=== PATIENT | female | born 1985 | race Caucasian/White ===

== ENCOUNTER → 2017-07-13 | Outpatient (CLI) | payer BC ==
[~2017-07-13] MED LIST: PRENATAL1 TA1 PO
== END ==
LOC: COL.RAD 10:10
DX: O44.11 Complete placenta previa with hemorrhage, first trimester (principal); Z3A.12 12 weeks gestation of pregnancy

== ENCOUNTER → 2017-11-30 | Outpatient (CLI) | payer BC | LOC: SUN.DIA 08:09 | DX: O24.419 Gestational diabetes mellitus in pregnancy, unspecified control (principal); Z3A.32 32 weeks gestation of pregnancy | CPT/HCPCS: G0108 ==

== ENCOUNTER 2018-01-14 01:43 | Inpatient (IN) | payer BC ==
[~2018-01-14] VITALS: Ht 175.3 cm; Wt 88.6 kg
[2018-01-14] VITALS (20 sets, daily range): BP systolic 127–151; BP diastolic 73–99; PULSE 77–113; TEMP 97.7–98.5
[2018-01-14] MEDS ORDERED: FLONASE NASAL S16 GM NS (02:19)
[2018-01-14] MEDS ORDERED: ZYRTEC 10MG10 MG PO (02:19)
[2018-01-14 02:37] LABS: BASO % 0.3 % (0.0-2.0); EOS # 0.1 (0.0-0.7); EOS % 0.7 % (0-4.0); GRAN # 7.1 (1.4-6.5); GRAN % 70.5 % (42.2-75.2); HEMOGLOBIN 12.4 g/dl (12.5-16.0); LYMPH % 19.6 % (20.0-51.0); MEAN CELL VOLUME 92 fl (80.0-100.0); MEAN CORPUSCULAR HEMOGLOBIN 32 pg (27.0-31.0); MEAN CORPUSCULAR HGB CONC 34 g/dl (33.0-37.0); MONO # 0.8 (0.1-0.6); MONO % 7.6 % (1.7-9.3); PLATELET COUNT 169 K/mm3 (130-400); REDCELL DISTRIBUTION WIDTH-CV 13.2 % (11.5-14.5)
[2018-01-15 00:55] VITALS: BP 141/94; PULSE 86; TEMP 97.9
[2018-01-15 05:15] VITALS: BP 131/93; PULSE 87; TEMP 98.2
[2018-01-15 07:50] VITALS: BP 134/86; PULSE 81; TEMP 97.8
[2018-01-15 12:00] VITALS: BP 146/97; PULSE 83
[2018-01-15] MEDS ORDERED: IBU800 M1 PO (13:22)
[2018-01-15] MEDS ORDERED: NORMODYNE200 MG PO (13:23)
[2018-01-15] MEDS ORDERED: BREASTPUMP MC (13:24)
[2018-01-15 15:00] VITALS: BP 125/85; PULSE 94
== END 2018-01-15 15:10 | disposition home or self-care (01) | DRG 807 ==
LOC: LDRO 01:43 → LDR 01:45 → OB 08:30
PROVIDERS: Obstetrics & Gynecology
PROC: 10E0XZZ Delivery of Products of Conception, External Approach (ICD-10-PCS; principal; 2018-01-14)
DX: O24.420 Gestational diabetes mellitus in childbirth, diet controlled (principal); Z37.0 Single live birth; Z3A.37 37 weeks gestation of pregnancy; O99.02 Anemia complicating childbirth; D64.9 Anemia, unspecified; N85.6 Intrauterine synechiae; O13.5 Gestational [pregnancy-induced] hypertension without significant proteinuria, complicating the puerperium
CPT/HCPCS: J2590; J2795; J7030

== ENCOUNTER → 2019-11-11 | Outpatient (CLI) | payer BC ==
[~2019-11-11] MED LIST changes: +BREASTPUMP MC; +FLONASE NASAL S16 GM NS; +IBU800 M1 PO; +NORMODYNE200 MG PO; +ZYRTEC 10MG10 MG PO
== END ==
LOC: COL.RAD 12:37
DX: R19.09 Other intra-abdominal and pelvic swelling, mass and lump (principal); R59.0 Localized enlarged lymph nodes

== ENCOUNTER → 2021-01-13 | Outpatient (CLI) | payer BC | LOC: MC.RAD 07:39 | DX: N63.21 Unspecified lump in the left breast, upper outer quadrant (principal) ==